=== PATIENT | male | born 1930 | race Caucasian/White ===

== ENCOUNTER → 2018-08-19 | Outpatient (CLI) | payer OTHER ==
--- NOTE | 2018-08-19 12:30 | RADIOLOGY REPORT (SQ) ---
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 TECHNIQUE: Pre and post IV contrasted scanning from skull base through the bilateral winston with revie w of bone, soft tissue and lung windows. Reconstructed coronal and sagittal MPR images reviewed. Al l images stored on PACS. All CT scanners at this facility use dose modulation, iterative reconstruction, and/or weight based d osing when appropriate to reduce radiation dose to as low as reasonably achievable (ALARA). [facility]: Dose Right [facility]: CareDose [facility]: Dose Right [facility]: Teradose 4D [facility]: Findline CONTRAST TYPE AND DOSE: contrast/concentration: Isovue 350.00 mg/ml; Total Contrast Delivered: 75.0 ml; Total Saline Delivered: 55.0 ml RENAL FUNCTION: Creatinine 1.1 RADIATION DOSE: 45 mGy . LIMITATIONS: None. 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 Bilateral cataract avril merritt. MAJOR SALIVARY GLANDS: No solid or cystic masses. No inflammatory changes. LYMPHADENOPATHY: No adenopathy. MUCOSAL MASSES OR ASYMMETRY: No mucosal masses or asymmetry. LARYNX/CORDS: There is a 1.5 cm AP x 1 cm transverse by 1.6 cm craniocaudad supraglottic laryngeal ma ss at the level of the false cords, obscuring intra laryngeal fat planes. This is best shown on axia l image 79, sagittal image 62 and coronal image 44. No erosion into the thyroid cartilage. There is partial effacement of the right piriform recess on axial image 74 of uncertain clinical significance . VASCULAR STRUCTURES: The major vessels are patent. 4 cm diameter ascending aorta. There is atherosc lerotic calcification of the aortic arch and carotid bifurcations without flow significant stenosis. Codominant vertebral arteries are present. LUNG APICES: Clear. BONES: Multilevel degenerative disc changes are present with high-grade right C3-4 foraminal narrowin g, high-grade left C4-5 foraminal narrowing, and mild bilateral C5-6 and C6-7 foraminal narrowing. THYROID: Normal size. No masses. PARANASAL SINUSES: Clear. OTHER: No other significant finding. 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 No regional ad enopathy. TECHNICAL DOCUMENTATION: JOB ID: [id number] Quality ID # [id number]: Final reports with documentation of one or more dose reduction techniques (e.g., Au tomated exposure control, adjustment of the mA and/or kV according to patient size, use of iterative reconstruction technique) 2010 [employer]- All Rights Reserved Reading location - [facility]station name: [email or web address]
== END ==
LOC: RAD 11:23
PROVIDERS: ATTEND Otolaryngology
DX: J38.00 Paralysis of vocal cords and larynx, unspecified (principal); R22.1 Localized swelling, mass and lump, neck
CPT/HCPCS: 70492; 82565

== ENCOUNTER 2018-09-24 09:58 | Day surgery (SDC) | payer OTHER, MEDICARE ==
[~2018-09-24 09:58] MED LIST: CEFAZOLIN 1 GM/D5W RTU 0 GM/0 ML RTUPB IV ONE; CEFAZOLIN 2 GM/D5W RTU 2 GM/50 ML RTUPB IV PRN; CEFAZOLIN SODIUM 2 GM in DEXTROSE 5%-WATER 100 ML IV PRN; DEXAMETHASONE SOD PHOSPHATE INJ 4 MG/1 ML VIAL ONE; GLYCOPYRROLATE 1 MG/5 ML VIAL ONE; PHENYLEPHRINE HCL INJ/PF 10 MG/1 ML SDV ONE; ROCURONIUM BROMIDE INJ 50 MG/5 ML VIAL IV ONE; SUCCINYLCHOLINE CHLORIDE INJ 200 MG/10 ML VIAL ONE
[2018-09-24] MEDS ORDERED: OXYMETAZOLINE HCL 0.05% NASAL SPRAY 15 ML BOTTLE ONE (10:26)
[2018-09-24] MEDS ORDERED: LIDOCAINE 1%/EPINEPHRINE INJ 20 ML VIAL ONE (10:26)
[2018-09-24] MEDS ORDERED: PROPOFOL INJ 200 MG/20 ML VIAL IV ONE (10:44)
[2018-09-24] MEDS ORDERED: MIDAZOLAM 2 MG/2 ML INJ ONE (10:44)
[2018-09-24] MEDS ORDERED: DEXAMETHASONE SOD PHOSPHATE INJ 4 MG/1 ML VIAL ONE (10:44)
[2018-09-24] MEDS ORDERED: FENTANYL CITRATE INJ/PF 100 MCG/2 ML AMPUL ONE (10:44)
[2018-09-24] MEDS ORDERED: ONDANSETRON HCL INJ/PF 4 MG/2 ML SDV ONE (10:44)
[2018-09-24] MEDS ORDERED: LIDOCAINE 2%/EPINEPHRINE INJ 1.7 ML CARTRIDGE ONE (10:51)
[2018-09-24] MEDS ORDERED: ONDANSETRON HCL INJ/PF 4 MG/2 ML SDV IV PRN ×2 (11:00→13:39)
[2018-09-24] MEDS ORDERED: FENTANYL CITRATE INJ/PF 100 MCG/2 ML AMPUL IV PRN ×3 (11:00)
[2018-09-24] MEDS ORDERED: MEPERIDINE HCL/PF INJ 25 MG/1 ML DISP.SYRIN IV PRN (11:00)
[2018-09-24] MEDS ORDERED: DIPHENHYDRAMINE HCL 50 MG/ML VIAL IV PRN (11:00)
[2018-09-24] MEDS ORDERED: COCAINE HCL 4% TOPICAL SOLN 4 ML ONE (11:31)
[2018-09-24] MEDS ORDERED: DEXAMETHASONE SOD PHOS INJ 10 MG/1 ML VIAL ONE (12:59)
[2018-09-24] MEDS ORDERED: HYDROCODONE/ACETAMINOPHEN 5-325 MG TABLET PO PRN (13:37)
--- NOTE | 2018-09-24 13:39 | EKG REPORT ---
SEVERITY:- NORMAL ECG - SINUS RHYTHM : Confirmed by: Abdelrahman Perales MD 24-Sep-2018 13:38:45
--- NOTE | 2018-09-24 13:45 | OPERATIVE REPORT E ---
Operative Report NAME: AKOSUA DIAZ : 1930 AGE: 87Y DATE OF SURGERY: 09/24/2018 ROOM: HISTORY: An 87-year-old male with a right true vocal cord mass, presents today for a micro direct laryngoscopy with biopsy of the right true vocal cord mass. Informed consent was obtained from the patient. PREOPERATIVE DIAGNOSIS: RIGHT TRUE VOCAL CORD MASS. 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 OPERATION: 1. Micro direct laryngoscopy 2. Biopsy of the right true vocal cord/subglottic mass. SURGEON: SHANE MAGANA MD ANESTHESIA: General via endotracheal intubation. PROCEDURE: After receiving informed consent from the patient, he was taken to the operating room and placed supine on the operating room table. After successful induction and intubation by Anesthesia, the patient was then turned 90 degrees. The Donterll laryngoscope was inserted atraumatically into the laryngeal inlet. The patient was then put into suspension. The microscope was then brought into the field and a pledget soaked with 4% cocaine placed on top of the vocal cords. Next, the laryngeal mass was identified and several biopsies were taken using cup forceps, curved alligators, and micro scissors. It appeared that the mass did extend subglottically on that right side. The mass involved the entirety of the right true vocal cord to the anterior commissure. Hemostasis was obtained and a pledget soaked with 4% cocaine placed into laryngeal inlet. This will be left in place until extubation. Patient taken back to Anesthesia who successfully extubated the patient without any complications, removing the pledgets. Estimated blood loss minimal. Fluids 500 mL crystalloid. Patient then transferred to Post Anesthesia Care Unit in stable conditions, spontaneous respiration. No complications. DICTATING PHYSICIAN: SHANE MAGANA M.D. [id number] PHY#: [id number] ID: [id number] JOB#: [id number] ACCT: [id number] cc:SHANE MAGANA MD > MTDD
[2018-09-24 14:30] VITALS: BP 171/76
== END 2018-09-24 14:57 | disposition home or self-care (01) ==
LOC: OROUT 09:58
PROVIDERS: ATTEND Otolaryngology
DX: C32.0 Malignant neoplasm of glottis (principal); J38.7 Other diseases of larynx; J38.00 Paralysis of vocal cords and larynx, unspecified; G47.33 Obstructive sleep apnea (adult) (pediatric); I25.2 Old myocardial infarction; Z86.73 Personal history of transient ischemic attack (TIA), and cerebral infarction without residual deficits; I11.0 Hypertensive heart disease with heart failure; Z79.82 Long term (current) use of aspirin; Z79.899 Other long term (current) drug therapy
CPT/HCPCS: 88305 ×2; 93005; 93010; 00320; 31535; J2250; J0690; J3490 ×3; J1100 ×2; J3010; J2370; J0330; J2405; J7060; J2704; 320